=== PATIENT | male | born 1985 | race Hispanic/Latino ===

== ENCOUNTER 2016-11-10 20:31 | Emergency (ER) | payer SELFPAY ==
[2016-11-10] MEDS ORDERED: MORPHINE IM ONE (20:48)
[2016-11-10] MEDS ORDERED: MORPHINE ONE (20:49)
--- NOTE | 2016-11-10 20:56 | Emergency Department Report ---
Upper Extremity - HPI Chief Complaint: Shoulder Injury Stated Complaint: RT SHOULDER DISLOCATED Time Seen by Provider: 11/10/16 20:48 Upper Extremity: Right Shoulder Occurred When: Today Mechanism: Other (injured during rugby) Severity: moderate Symptoms: Yes Pain with Movement, Yes Limited Range of Movement, No Deformity, No Numbness, No Weakness, No Swelling, No Bruising/Ecchymosis, No Laceration or Abrasion ED Review of Systems ROS: Stated complaint: RT SHOULDER DISLOCATED Other details as noted in HPI Constitutional: denies: chills, fever Respiratory: denies: cough, shortness of breath, wheezing Cardiovascular: denies: chest pain, palpitations Neurological: denies: headache, weakness, paresthesias ED Past Medical Hx - Past Medical History Previous Medical History?: Yes 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 - Surgical History Additional Surgical History: testicular surgery - Family History Family history: no significant - Social History Smoking Status: Never Smoker Substance Use Type: None - Medications Home Medications: Home Medications Medication Instructions Recorded Confirmed Last Taken Type Oxycodone HCl/Acetaminophen 1 each PO Q6HR PRN #20 tablet 10/18/15 Unknown Rx [Percocet 10/325 mg] HYDROcodone/APAP 5-325 [[place] 1 each PO Q6HR PRN #15 tablet 11/10/16 Unknown Rx 5-325 mg TAB] Ibuprofen [Motrin 800 MG tab] 800 mg PO Q8HR PRN #30 tablet 11/10/16 Unknown Rx Upper Extremity Exam - Exam General: Vital signs noted. No distress. Alert and acting appropriately. Head and Torso: No HEENT Abnormality, No Neck Tenderness, No Chest/Lungs Abnormality, No Abdominal Tenderness, No Back Tenderness Shoulder Exam: Yes Shoulder Tenderness, No Clavicle Tenderness, No Normal Range of Motion in Shoulder, No Shoulder Deformity, No AC Joint Tenderness Arm Exam: No Arm/Humerus Tenderness, No Arm Deformity Elbow: No Elbow Tenderness, No Normal Range of Motion in Elbow, No Elbow Deformity Forearm: No Forearm Tenderness, No Forearm Deformity, No Pain with Pronation, No Pain with Supination Wrist: No Wrist Tenderness, No Normal ROM in Wrist, No Wrist Deformity, No Snuffbox Tenderness, No Pain with Axial Thumb Compression Hand: No Hand Tenderness, No Hand Deformity, No Digit Tenderness, No Normal ROM in Digit(s), No Digit(s) Deformity, No Tendon Dysfunction ED Course Vital Signs 11/10/16 20:33 Temperature 98.1 F Pulse Rate 106 H Respiratory 24 Rate Blood Pressure 151/89 O2 Sat by Pulse 97 Oximetry - Orthopedic Joint Reduction Joint #1 Consent Obtained: verbal consent Time Out Performed: Yes Side: right Joint Reduction Location: shoulder Analgesia: none Shoulder Technique Used (if applicable): scapula manipulation Post-Reduction Neuro Exam: intact Post-Reduction Vascular Exam: intact Post Reduction X-Ray Obtained: Yes Post Reduction X-Ray Results: reduced Splint Applied: Yes Patient Tolerated Procedure: well ED Medical Decision Making - Medical Decision Making 31-year-old male here with rugby injury. Right shoulder dislocation. Has dislocated this shoulder before. X-ray with mild right shoulder dislocation. Patient placed prone with arm pain of bed. Discussed need to reduce. Given single shot of 4 mg of IM morphine. Reduced with manipulation. No difficulty. Neurovascular intact. Sling applied. Critical care attestation.: If time is entered above; I have spent that time in minutes in the direct care of this critically ill patient, excluding procedure time. ED Disposition Clinical Impression: Shoulder dislocation Disposition: DC-01 TO HOME OR SELFCARE Is pt being admited?: No Does the pt Need Aspirin: No Condition: Stable Instructions: Shoulder Dislocation (ED) Prescriptions: HYDROcodone/APAP 5-325 [[place] 5-325 mg TAB] 1 each PO Q6HR PRN #15 tablet PRN Reason: Pain Ibuprofen [Motrin 800 MG tab] 800 mg PO Q8HR PRN #30 tablet PRN Reason: Pain Referrals: MARGARET MON MD [Staff Physician] - 3-5 Days
[2016-11-10 21:03] VITALS: BP 120/66
--- NOTE | 2016-11-11 07:22 | XRay Report ---
Right shoulder 2 views: History: Shoulder pain, BDG. Findings: No bony or articular abnormality. No fracture or dislocation clearly identified. Impression: No definite evidence of acute fracture.
--- NOTE | 2016-11-11 07:23 | XRay Report ---
Right shoulder 2 views: Findings: Post reduction film reveals satisfactory alignment of humeral head with glenoid. No fracture is seen. Impression: No acute fracture.
== END 2016-11-10 21:37 | disposition home or self-care (01) ==
LOC: ED 20:31
DX: S43.004A Unspecified dislocation of right shoulder joint, initial encounter (principal); X58.XXXA Exposure to other specified factors, initial encounter; Y93.89 Activity, other specified; Y92.89 Other specified places as the place of occurrence of the external cause; Y99.8 Other external cause status
CPT/HCPCS: 23650; 73030; 96372; 99283; J2270

== ENCOUNTER 2017-05-16 11:03 | Emergency (ER) | payer SELFPAY ==
[2017-05-16] MEDS ORDERED: BENADRYL IV ONE (12:03)
[2017-05-16] MEDS ORDERED: TORADOL IV ONE (12:03)
[2017-05-16 12:10] VITALS: BP 126/68
--- NOTE | 2017-05-16 12:25 | Emergency Department Report ---
ED General Adult HPI - General Chief complaint: Extremity Injury, Upper Stated complaint: RIGHT SHOULDER Time Seen by Provider: 05/16/17 11:56 Source: patient Mode of arrival: Ambulatory Limitations: No Limitations - History of Present Illness Initial comments: This is the patient's third visit to this emergency Department for presumed shoulder dislocation. I one occasion the emergency physician. Have thought that the patient had a dislocation. However I reviewed 3 x-rays and none of the x-rays are indicative of dislocation. The patient is also presented to this facility twice for other pain complaints. Many regard this time the patient states that he was on a ladder and he outstretched his right arm. He believes it to be dislocated he states. However he did not feel a pop such that the joint relocated. He complains of diffuse shoulder pain. He tells me he has an orthopedist in [place] who has recommended a surgical procedure for rotator cuff injury. He states he has a partial tear. He wants to know what can be done to correct this problem at this time. However, he already has made arrangements for elective surgery pending his consent with his own orthopedic physician he states. He denies other injury. The patient does admit to chronic opioid use for shoulder pain. -: Sudden, hour(s) Location: right, upper extremity Radiation: non-radiation Severity scale (0 -10): 7 Quality: aching Consistency: constant Improves with: none Worsens with: none Associated Symptoms: denies other symptoms Treatments Prior to Arrival: none - Related Data Previous Rx's Medication Instructions Recorded Last Taken Type Oxycodone HCl/Acetaminophen 1 each PO Q6HR PRN #20 tablet 10/18/15 Unknown Rx [Percocet 10/325 mg] HYDROcodone/APAP 5-325 [[place] 1 each PO Q6HR PRN #15 tablet 11/10/16 Unknown Rx 5-325 mg TAB] Ibuprofen [Motrin 800 MG tab] 800 mg PO Q8HR PRN #30 tablet 11/10/16 Unknown Rx HYDROcodone/ACETAMINOPHEN [[place] 1 each PO Q6H PRN #10 tablet 05/16/17 Unknown Rx 5-325 Tablet] Allergies Allergy/AdvReac Type Severity Reaction Status Date / Time No Known Allergies Allergy Unverified 03/16/15 10:23 ED Review of Systems ROS: Stated complaint: RIGHT SHOULDER Other details as noted in HPI Constitutional: denies: chills, fever Eyes: denies: eye pain, eye discharge, vision change ENT: denies: ear pain, throat pain Respiratory: denies: cough, shortness of breath, wheezing Cardiovascular: denies: chest pain, palpitations Endocrine: no symptoms reported Gastrointestinal: denies: abdominal pain, nausea, diarrhea Genitourinary: denies: urgency, dysuria Musculoskeletal: as per HPI, arthralgia. 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, recurrent right shoulder dislocation - Surgical History Additional Surgical History: testicular surgery - Social History Smoking Status: Never Smoker Substance Use Type: None - Medications Home Medications: Home Medications Medication Instructions Recorded Confirmed Last Taken Type Oxycodone HCl/Acetaminophen 1 each PO Q6HR PRN #20 tablet 10/18/15 Unknown Rx [Percocet 10/325 mg] HYDROcodone/APAP 5-325 [[place] 1 each PO Q6HR PRN #15 tablet 11/10/16 Unknown Rx 5-325 mg TAB] Ibuprofen [Motrin 800 MG tab] 800 mg PO Q8HR PRN #30 tablet 11/10/16 Unknown Rx HYDROcodone/ACETAMINOPHEN [[place] 1 each PO Q6H PRN #10 tablet 05/16/17 Unknown Rx 5-325 Tablet] ED Physical Exam - General Limitations: No Limitations General appearance: alert, in no apparent distress - Head Head exam: Present: atraumatic, normocephalic - Eye Eye exam: Present: normal appearance - ENT ENT exam: Present: mucous membranes moist - Neck Neck exam: Present: normal inspection - Respiratory Respiratory exam: Present: normal lung sounds bilaterally. Absent: respiratory distress - Cardiovascular Cardiovascular Exam: Present: regular rate, normal rhythm. Absent: systolic murmur, diastolic murmur, rubs, gallop - GI/Abdominal GI/Abdominal exam: Present: soft, normal bowel sounds. Absent: distended, tenderness, guarding, rebound - Rectal Rectal exam: Present: deferred - Extremities Exam Extremities exam: Present: normal inspection, tenderness (the patient does have some tenderness to palpation to the right shoulder. However, clearly the head of the humerus is in the glenoid fossa. He can rotate the shoulder without appreciable pain internally and externally. Patient has some hesitation and full range of motion is possible. Distally neurovascular exam is intact.) - Back Exam Back exam: Present: normal inspection - Neurological Exam Neurological exam: Present: alert, oriented X3, CN II-XII intact. Absent: motor sensory deficit - Psychiatric Psychiatric exam: Present: normal mood, anxious - Skin Skin exam: Present: warm, dry, intact, normal color. Absent: rash ED Course Vital Signs 05/16/17 05/16/17 05/16/17 11:13 11:51 12:00 Temperature 97.7 F Pulse Rate 101 H Respiratory 20 Rate Blood Pressure 110/82 126/68 O2 Sat by Pulse 100 97 94 Oximetry - Reevaluation(s) Reevaluation #1: The patient has no ride. He was given Toradol and Benadryl. He will be given a prescription for Vicodin short-term. He is directed back to his own orthopedic doctor for definitive care and evaluation. His x-ray did not show dislocation or fracture. It is possible he has a chronic low degree ac separation. There is no tenderness over this area. 05/16/17 12:28 ED Medical Decision Making - Radiology Data interpreted by me: No fracture or dislocation. There is a slight discontinuity of the ac joint which I believe to be chronic. Critical care attestation.: If time is entered above; I have spent that time in minutes in the direct care of this critically ill patient, excluding procedure time. ED Disposition Clinical Impression: Right shoulder pain Qualifiers: Chronicity: acute Qualified Code(s): M25.511 - Pain in right shoulder Disposition: DC-01 TO HOME OR SELFCARE Is pt being admited?: No Does the pt Need Aspirin: No Condition: Stable Instructions: Shoulder Sprain (ED) Additional Instructions: Shoulder sling. Rest shoulder. Follow-up with your usual orthopedic doctor. Rx as needed for pain. Prescriptions: HYDROcodone/ACETAMINOPHEN [[place] 5-325 Tablet] 1 each PO Q6H PRN #10 tablet PRN Reason: Pain Referrals: usual, orthopedist [Other] - 24 Hours Time of Disposition: 12:32
--- NOTE | 2017-05-16 17:56 | XRay Report ---
FINAL REPORT PROCEDURE: XR SHOULDER 2+V RT TECHNIQUE: Right shoulder radiographs including AP views in internal and external rotation and scapular Y-view. CPT 01875 HISTORY: Rule out right shoulder dislocation. COMPARISON: No prior studies are available for comparison. FINDINGS: Fracture (s) and/or Dislocation(s): None . Joint space(s): Normal . Soft tissues: Normal . Bone mineralization: Normal . Foreign bodies: None . IMPRESSION: No radiographic evidence of acute abnormality/dislocation.
== END 2017-05-16 12:45 | disposition home or self-care (01) ==
LOC: ED 11:03
DX: M25.511 Pain in right shoulder (principal)
CPT/HCPCS: 73030; 96374; 96375; 99284; J1200; J1885

== ENCOUNTER 2017-12-28 09:40 | Emergency (ER) | payer SELFPAY ==
[2017-12-28] MEDS ORDERED: DILAUDID IV ONE (10:40)
[2017-12-28] MEDS ORDERED: TORADOL IV ONE ×3 (10:40→11:17)
[2017-12-28] MEDS ORDERED: TORADOL ONE (10:45)
[2017-12-28] MEDS ORDERED: DILAUDID ONE (10:45)
--- NOTE | 2017-12-28 10:55 | Emergency Department Report ---
ED General Adult HPI - General Chief complaint: Extremity Injury, Lower Stated complaint: GROIN PAIN Time Seen by Provider: 12/28/17 10:33 Source: patient, RN notes reviewed Mode of arrival: Ambulatory Limitations: Physical Limitation - History of Present Illness Initial comments: This is a 32-year-old male who was not known to this provider previously, has a history of testicular torsion that was treated surgically with left-sided orchiopexy 2 years ago, who presents to the ER with a complaint of left traumatic groin pain. Patient reports that he was in his usual state of health , was walking down a ladder, missed a step, had to jump down, and then twisted to the side. He has left sharp groin pain which does not radiate anywhere, and which increases with palpation and decreases with rest. He has no testicular pain, and no other extremity pain, complaints or injuries. Specifically denies headache, neck pain, chest pain, abdominal pain, right lower extremity pain, and has no pain in his left lower extremity distal to the proximal groin. -: Sudden Location: left, lower extremity Radiation: non-radiation Consistency: constant Improves with: rest Worsens with: movement Associated Symptoms: denies: confusion, chest pain, cough, diaphoresis, fever/ chills, headaches, loss of appetite, malaise, nausea/vomiting, rash, seizure, shortness of breath, syncope, weakness - Related Data Previous Rx's Medication Instructions Recorded Last Taken Type Acetaminophen [Tylenol Arthritis] 650 mg PO Q6HR PRN #30 tablet.er 12/28/17 Unknown Rx Ibuprofen [Motrin] 600 mg PO Q8H PRN #30 tablet 12/28/17 Unknown Rx oxyCODONE [Roxicodone] 5 mg PO Q6HR PRN #6 tablet 12/28/17 Unknown Rx Allergies Allergy/AdvReac Type Severity Reaction Status Date / Time No Known Allergies Allergy Unverified 03/16/15 10:23 ED Review of Systems ROS: Stated complaint: GROIN PAIN Other details as noted in HPI Constitutional: denies: fever Eyes: denies: eye discharge ENT: denies: epistaxis Respiratory: denies: cough Cardiovascular: denies: chest pain Gastrointestinal: denies: nausea, vomiting Genitourinary: denies: testicular pain Musculoskeletal: myalgia Neurological: denies: headache, weakness, numbness, paresthesias, confusion Psychiatric: anxiety ED Past Medical Hx - Past Medical History Previous Medical History?: Yes 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, recurrent right shoulder dislocation - Surgical History Past Surgical History?: Yes Additional Surgical History: testicular surgery - Social History Smoking Status: Never Smoker Substance Use Type: None - Medications Home Medications: Home Medications Medication Instructions Recorded Confirmed Last Taken Type Acetaminophen [Tylenol Arthritis] 650 mg PO Q6HR PRN #30 tablet.er 12/28/17 Unknown Rx Ibuprofen [Motrin] 600 mg PO Q8H PRN #30 tablet 12/28/17 Unknown Rx oxyCODONE [Roxicodone] 5 mg PO Q6HR PRN #6 tablet 12/28/17 Unknown Rx ED Physical Exam - General Limitations: Physical Limitation General appearance: alert, in no apparent distress - Head Head exam: Present: atraumatic, normocephalic - Eye Eye exam: Present: normal appearance, EOMI. Absent: nystagmus - ENT ENT exam: Present: normal exam, normal orophraynx, mucous membranes moist, normal external ear exam - Neck Neck exam: Present: normal inspection, full ROM - Respiratory Respiratory exam: Present: normal lung sounds bilaterally. Absent: respiratory distress - Cardiovascular Cardiovascular Exam: Present: normal rhythm, tachycardia, normal heart sounds. Absent: systolic murmur, diastolic murmur, rubs, gallop - GI/Abdominal GI/Abdominal exam: Present: soft. Absent: distended, tenderness, guarding, rebound, rigid, pulsatile mass - Rectal Rectal exam: Present: deferred - exam: Present: normal inspection, other (there is no testicular tenderness. There is normal testicular lie bilaterally. There is normal cremasteric reflex bilaterally.). Absent: testicular tenderness External exam: Present: normal external exam, other (chaperoned by nurse isadora paul) - Extremities Exam Extremities exam: Present: normal inspection, full ROM (there is full range of motion in the bilateral upper extremities. There is full range of motion in the right lower extremity. Range of motion intact to the left ankle and left knee. Range of motion limited in the left thigh secondary to pain.), tenderness (there is left inguinal tenderness.), normal capillary refill, other (2+ pulses noted in the bilateral upper, lower extremities. Compartments soft. No long bony tenderness. The pelvis is stable.). Absent: pedal edema, joint swelling, calf tenderness - Back Exam Back exam: Present: normal inspection, full ROM. Absent: tenderness, CVA tenderness (R), paraspinal tenderness, vertebral tenderness - Neurological Exam Neurological exam: Present: alert, oriented X3, CN II-XII intact, other ( Extraocular movements intact. Tongue midline. No facial droop. Facial sensation intact to light touch in the V1, V2, V3 distribution bilaterally. 5 and 5 strength in 4 extremities.. Sensation is intact to light touch in 4 extremities.). Absent: motor sensory deficit - Psychiatric Psychiatric exam: Present: normal mood, anxious - Skin Skin exam: Present: warm, dry, intact, normal color. Absent: rash ED Course Vital Signs 12/28/17 12/28/17 12/28/17 09:43 10:00 10:01 Temperature 98.3 F Pulse Rate 115 H 82 93 H Respiratory 18 22 Rate Blood Pressure 113/76 145/86 O2 Sat by Pulse 97 Oximetry 12/28/17 12/28/17 12/28/17 10:02 10:30 11:00 Temperature Pulse Rate 89 83 Respiratory 15 11 L Rate Blood Pressure 145/86 145/86 145/86 O2 Sat by Pulse 97 98 98 Oximetry 12/28/17 11:30 Temperature Pulse Rate Respiratory Rate Blood Pressure 131/85 O2 Sat by Pulse 98 Oximetry - Reevaluation(s) Reevaluation #1: 12/28/17 10:55 Differential diagnosis, including but not limited to: Muscular sprain, strain, tendon rupture Assessment and plan: 32-year-old male with left groin pain and tenderness, no obvious swelling, equal pulses in the bilateral upper, lower extremities, no indication of neurovascular insufficiency. Highly suspect ligamentous or proximal muscular injury. Pain medication ordered. X-ray of the hip ordered. We will reassess. Tachycardia likely secondary to pain. Reevaluation #2: 12/28/17 11:55 The patient feels dramatically improved. He reports 75% improvement. His range of motion is much improved. He is able to lift up the left upper extremity against gravity. X-ray of the hip shows no fracture or avulsion or dislocation. The patient is quite athletic and has private orthopedic follow- up at [facility]. He will be made nonweightbearing, he reports that he has crutches at home, and he will be discharged with appropriate pain medication. ED Medical Decision Making - Lab Data Vital Signs 12/28/17 12/28/17 12/28/17 09:43 10:00 10:01 Temperature 98.3 F Pulse Rate 115 H 82 93 H Respiratory 18 22 Rate Blood Pressure 113/76 145/86 O2 Sat by Pulse 97 Oximetry 12/28/17 12/28/17 10:02 10:30 Temperature Pulse Rate 89 83 Respiratory 15 11 L Rate Blood Pressure 145/86 145/86 O2 Sat by Pulse 97 98 Oximetry - Radiology Data Radiology results: report reviewed, image reviewed X-ray of the left hip demonstrates no fracture or dislocation or osseous abnormalities Critical care attestation.: If time is entered above; I have spent that time in minutes in the direct care of this critically ill patient, excluding procedure time. ED Disposition Clinical Impression: Left groin pain Disposition: - TO HOME OR SELFCARE Is pt being admited?: No Does the pt Need Aspirin: No Condition: Stable Instructions: Groin Strain (ED) Additional Instructions: Patient should remain nonweightbearing on the left lower extremity. Patient should use the crutches at home. Take the pain medication as needed/directed. Patient should follow-up with an orthopedic physician within the next 5 days. If taking the oxycodone, do not drive, consume alcohol, or make important decisions. Please return to the ER right away with new pain, worsened pain, migration of pain, projectile vomiting, change in mental status, confusion, inability to tolerate liquid feeds. Prescriptions: Acetaminophen [Tylenol Arthritis] 650 mg PO Q6HR PRN #30 tablet.er PRN Reason: Pain Ibuprofen [Motrin] 600 mg PO Q8H PRN #30 tablet PRN Reason: Pain oxyCODONE [Roxicodone] 5 mg PO Q6HR PRN #6 tablet PRN Reason: Pain Referrals: MARGARET MON MD [Staff Physician] - 3-5 Days [facility] [Provider Group] - 3-5 Days
--- NOTE | 2017-12-28 11:12 | XRay Report ---
LEFT HIP, 2 views: History: Left hip pain. The bony architecture is intact without evidence of fracture or dislocation. No significant soft tissue abnormality is seen. IMPRESSION: Normal left hip.
[2017-12-28] MEDS ORDERED: SUBLIMAZE IV ONE (11:17)
[2017-12-28 12:39] VITALS: BP 131/85
== END 2017-12-28 12:00 | disposition home or self-care (01) ==
LOC: ED 09:40
DX: R10.9 Unspecified abdominal pain (principal)
CPT/HCPCS: 73502; 96374; 96375; 96376; 99283; J1170; J1885; J3010